=== PATIENT | male | born 1990 | race Caucasian/White ===

== ENCOUNTER → 2019-04-07 | Outpatient (CLI) | payer BC ==
[2019-04-07 10:09] LABS: STOOL FOR OCCULT BLOOD NEGATIVE (NEGATIVE)
== END ==
LOC: COL.LAB 09:09
PROVIDERS: Internal Medicine Gastroenterology
DX: B96.81 Helicobacter pylori [H. pylori] as the cause of diseases classified elsewhere (principal)

== ENCOUNTER → 2019-04-16 | Outpatient (CLI) | payer BC | LOC: COL.RAD 08:00 | DX: R19.7 Diarrhea, unspecified (principal) ==

== ENCOUNTER → 2019-05-07 | Outpatient (CLI) | payer BC | LOC: BHSO 08:58 | DX: F33.1 Major depressive disorder, recurrent, moderate (principal) ==

== ENCOUNTER → 2019-05-19 | Outpatient (CLI) | payer BC | LOC: BHSO 09:07 | DX: F33.0 Major depressive disorder, recurrent, mild (principal) ==

== ENCOUNTER → 2019-05-29 | Outpatient (CLI) | payer BC | LOC: BHSO 09:11 | DX: F33.1 Major depressive disorder, recurrent, moderate (principal) ==